=== PATIENT | female | born 1985 | race Caucasian/White ===

== ENCOUNTER 2023-02-26 03:08 | Emergency (ER) | payer OTHER ==
[~2023-02-26] VITALS: Ht 167 cm; Wt 95.0 kg
[2023-02-26] MEDS ORDERED: LACTATED RINGERS 1,000 ML IV STA (03:26)
[2023-02-26] MEDS ORDERED: ONDANSETRON 4 MG/2 ML (SDV) Z0FRAN IVP ONE (03:30)
--- NOTE | 2023-02-26 03:32 | ED GI ---
General Chief Complaint: Abdominal/GI Problems Stated Complaint: NAUSEA,VOMITING,DIARRHEA Source of Information: Patient History of Present Illness Date Seen by Provider: February 26, 2023 Time Seen by Provider: 03:15 Initial Comments PT ARRIVES VIA POV STATES SHE BEGAN FEELING SICK ABOUT 12 HOURS AGO WITH: -NAUSEA/VOMITING/DIARRHEA. SHE STATES THE VOMITING AND DIARRHEA STARTED ABOUT 9 HOURS AGO--SHE HAS VOMITED "AT LEAST 30 TIMES" AND HAS HAD DIARRHEA THE SAME NUMBER OF TIMES--STATES SHE HAS DIARRHEA EVERY TIME SHE VOMITS. NO HEMATEMESIS OR COFFEE-GROUND EMESIS. NO BLACK/BLOODY/TARRY STOOLS -DIFFUSE ABDOMINAL CRAMPING. -CHILLS--HAS NOT CHECKED TEMPERATURE LAST VOID IS UNKNOWN--SOMETIME BEFORE THE ONSET OF THESE SYMPTOMS. SHE HAS NOT VOIDED SINCE THESE SYMPTOMS BEGAN. NO KNOWN SICK CONTACTS OR SUSPICIOUS FOODS. SHE STATES THAT SHE BEGAN HAVING SYMPTOMS OF A "SINUS INFECTION" ON Tuesday02/21/23 AND WAS PRESCRIBED ZITHROMAX AND PREDNISONE. NO TESTS WERE DONE. SHE HAS JUST FINISHED THOSE MEDICATIONS LMP--4 WEEKS AGO. NORMAL. NO CONTROL. PT HAS HAD 1 COVID VACCINE IN 2020. NO FLU VACCINE. NO CHRONIC MEDICAL PROBLEMS, SHE IS CURRENTLY ON VALCYCLOVIR FOR AN EYE PROBLEM. OTHERWISE DOES NOT TAKE ANY DAILY MEDICATIONS. NO HISTORY OF GI PROBLEMS HER ONLY SURGERY HAS BEEN A IN 2021 SHE DENIES SMOKING, ALCOHOL OR DRUG USE PT IS HERE VISITING FROM [facility] Allergies and Home Medications Allergies Coded Allergies: No Known Drug Allergies (Unverified , 02/26/23) Review of Systems Review of Systems Constitutional: see HPI, chills EENTM: See HPI, Nose Congestion Respiratory: Cough Cardiovascular: No Symptoms Reported Gastrointestinal: See HPI, Abdominal Pain, Diarrhea, Nausea, Poor Fluid Intake, Vomiting Genitourinary: See HPI Musculoskeletal: no symptoms reported Skin: no symptoms reported Psychiatric/Neurological: No Symptoms Reported Endocrine: No Symptoms Reported Hematologic/Lymphatic: No Symptoms Reported Past Feunobj-Gpautp-Obzmbz Hx Patient Social History Tobacco Use?: No Use of E-Cig and/or Vaping dev: No Substance use?: No Alcohol Use?: No Past Medical History Surgeries: Yes ( X 1 IN 2021) Section Respiratory: No Cardiac: No Neurological: No : No Reproductive Disorders: No Genitourinary: No Gastrointestinal: No Musculoskeletal: No Endocrine: No HEENT: Yes (CURRENTLY ON VALCYCLOVIR FOR AN EYE PROBLEM) Cancer: No Psychosocial: No Integumentary: No Blood Disorders: No Physical Exam Vital Signs Vital Signs - First Documented 02/26/23 03:20 Temp 36.7 Pulse 116 Resp 18 B/P (MAP) 106/78 (87) Capillary Refill : Height/Weight/BMI Height: '" Weight: lbs. oz. kg; BMI Method: General Appearance: WD/WN, no apparent distress HEENT: PERRL/EOMI, other (ORAL MUCOSA SLIGHTLY DRY) Neck: normal inspection Respiratory: normal breath sounds, no respiratory distress, no accessory muscle use Cardiovascular: no edema, no murmur, tachycardia Gastrointestinal: abnormal bowel sounds (HYPERACTIVE); No distended, No guarding, No rebound; tenderness (MILD DIFFUSE TENDERNESS. 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, no motor/sensory deficits, alert, normal mood/affect, oriented x 3 Skin: warm/dry, pallor; No rash Progress/Results/Core Measures Results/Orders Lab Results Laboratory Tests Test 02/26/23 03:30 02/26/23 04:05 02/26/23 06:20 Range/Units White Blood Count 13.1 H 4.3-11.0 10^3/uL Red Blood Count 5.56 H 3.80-5.11 10^6/uL Hemoglobin 16.1 H 11.5-16.0 g/dL Hematocrit 47 35-52 % Mean Corpuscular Volume 84 80-99 fL Mean Corpuscular Hemoglobin 29 25-34 pg Mean Corpuscular Hemoglobin Concent 34 32-36 g/dL Red Cell Distribution Width 13.7 10.0-14.5 % Platelet Count 455 H 130-400 10^3/uL Mean Platelet Volume 9.6 9.0-12.2 fL Immature Granulocyte % (Auto) 1 % Neutrophils (%) (Auto) 88 H 42-75 % Lymphocytes (%) (Auto) 5 L 12-44 % Monocytes (%) (Auto) 7 0-12 % Eosinophils (%) (Auto) 0 0-10 % Basophils (%) (Auto) 0 0-10 % Neutrophils # (Auto) 11.5 H 1.8-7.8 10^3/uL Lymphocytes # (Auto) 0.6 L 1.0-4.0 10^3/uL Monocytes # (Auto) 0.9 0.0-1.0 10^3/uL Eosinophils # (Auto) 0.0 0.0-0.3 10^3/uL Basophils # (Auto) 0.1 0.0-0.1 10^3/uL Immature Granulocyte # (Auto) 0.1 0.0-0.1 10^3/uL Neutrophils % (Manual) 87 % Lymphocytes % (Manual) 5 % Monocytes % (Manual) 8 % Blood Morphology Comment NORMAL Sodium Level 141 135-145 MMOL/L Potassium Level 4.0 3.6-5.0 MMOL/L Chloride Level 108 H 98-107 MMOL/L Carbon Dioxide Level 12 L 21-32 MMOL/L Anion Gap 21 H 5-14 MMOL/L Blood Urea Nitrogen 27 H 7-18 MG/DL Creatinine 2.20 H 0.60-1.30 MG/DL Estimat Glomerular Filtration Rate 29 BUN/Creatinine Ratio 12 Glucose Level 168 H 70-105 MG/DL Calcium Level 10.2 H 8.5-10.1 MG/DL Corrected Calcium 8.5-10.1 MG/DL Magnesium Level 2.0 1.6-2.4 MG/DL Total Bilirubin 0.7 0.1-1.0 MG/DL Aspartate Amino Transf (AST/SGOT) 13 5-34 U/L Alanine Aminotransferase (ALT/SGPT) 21 0-55 U/L Alkaline Phosphatase 98 40-136 U/L Total Protein 9.2 H 6.4-8.2 GM/DL Albumin 5.1 H 3.2-4.5 GM/DL Amylase Level 80 25-125 U/L Lipase 21 8-78 U/L Serum Test, Qualitative NEGATIVE NEGATIVE Serum Alcohol < 10 <10 MG/DL Influenza Type A (RT-PCR) Not Detected Not Detecte Influenza Type B (RT-PCR) Not Detected Not Detecte SARS-CoV-2 RNA (RT-PCR) Not Detected Not Detecte My Orders Orders - DARWIN ELIAS DO Ed Iv/Invasive Line Start (02/26/23 03:17) Monitor-Rhythm Ecg Trace Only (02/26/23 03:17) Alcohol (02/26/23 03:17) Amylase (02/26/23 03:17) Cbc With Automated Diff (02/26/23 03:17) Comprehensive Metabolic Panel (02/26/23 03:17) Drug Screen Stat (Urine) (02/26/23 03:17) Hcg,Qualitative Serum (02/26/23 03:17) Lipase (02/26/23 03:17) Magnesium (02/26/23 03:17) Ua Culture If Indicated (02/26/23 03:17) Ondansetron Injection (Zofran Injectio (02/26/23 03:30) Lactated Ringers (Lr 1000 Ml Iv Solution (02/26/23 03:26) Ed Iv/Invasive Line Start (02/26/23 03:26) Manual Differential (02/26/23 03:30) Covid 19 Inhouse Test (02/26/23 04:03) Influenza A And B By Pcr (02/26/23 04:03) Isolation Central Supply Req (02/26/23 04:03) Ed Iv/Invasive Line Start (02/26/23 04:08) Lactated Ringers (Lr 1000 Ml Iv Solution (02/26/23 04:15) Metoclopramide Injection (Reglan Injecti (02/26/23 04:15) Pantoprazole Injection (Protonix Injecti (02/26/23 04:15) Medications Given in ED Current Medications Medications Dose Ordered Sig/[place] Route Start Time Stop Time Status Last Admin Dose Admin Lactated Ringer's 1,000 ml @ 0 mls/hr Q0M ONCE IV 02/26/23 04:15 02/26/23 04:16 DC 02/26/23 05:06 1,000 MLS/HR Metoclopramide HCl 10 mg ONCE ONCE IVP 02/26/23 04:15 02/26/23 04:16 DC 02/26/23 04:22 10 MG Ondansetron HCl 4 mg ONCE ONCE IVP 02/26/23 03:30 02/26/23 03:31 DC 02/26/23 03:49 4 MG Pantoprazole 40 mg ONCE ONCE IV 02/26/23 04:15 02/26/23 04:16 DC 02/26/23 04:22 40 MG Vital Signs/I&O 02/26/23 03:20 Temp 36.7 Pulse 116 Resp 18 B/P (MAP) 106/78 (87) Progress Progress Note : Progress Note GIVEN: -IV FLUIDS -ZOFRAN BASIC LAB INCLUDING CBC, CHEMISTRIES, HCG, UA AND COVID/FLU TESTS ORDERED PT IS MILDLY TACHYCARDIC ON ARRIVAL WITH HR IN 110'S, BP IS NORMAL FEELS MUCH BETTER AFTER THE ABOVE. NO VOMITING OR DIARRHEA DURING ER STAY PT IS ABLE TO VOID AFTER IV FLUIDS HEART RATE DOWN TO 90'S, BP IS STABLE AT > 100 SYSTOLIC Departure Impression Primary Impression: Gastroenteritis Disposition: HOME, SELF-CARE Condition: Improved Departure-Patient Inst. Decision time for Depature: 06:30 Referrals: NO,LOCAL PHYSICIAN (PCP/Family) Primary Care Physician Patient Instructions: [id number] Add. Discharge Instructions: CLEAR LIQUIDS, SIPS AT A TIME--WATER, BROTH, JELLO, GATORADE WHEN YOUR NAUSEA IS BETTER, ADD BRATS DIET TO CLEAR LIQUIDS--BANANAS, RICE, APPLESAUCE, TOAST, SALTINES FOLLOW UP WITH YOUR DR ON TUESDAY IF SYMPTOMS PERSIST, RETURN TO ER IF SYMPTOMS WORSEN. All discharge instructions reviewed with patient and/or family. Voiced understanding. Scripts L. Acidophilus/Pectin, [place] (Acidophilus Capsule) 7.5 Mg (30 Million Cell)-100 Mg Capsule 2 EACH PO QID, #40 CAP Prov: DARWIN ELIAS DO 02/26/23 Ondansetron (Ondansetron Odt) 8 Mg Tab.rapdis 8 MG PO Q6H, #10 TAB Prov: DARWIN ELIAS DO 02/26/23 DARWIN ELIAS DO February 26, 2023 03:32
[2023-02-26 03:44] LABS: BASOPHILS # (AUTO) 0.1 10^3/uL (0.0-0.1); BASOPHILS % (AUTO) 0 % (0-10); EOSINOPHILS % (AUTO) 0 % (0-10); HEMATOCRIT 47 % (35-52); HEMOGLOBIN 16.1 g/dL (11.5-16.0); LYMPHOCYTES # (AUTO) 0.6 10^3/uL (1.0-4.0); LYMPHOCYTES % (AUTO) 5 % (12-44); MEAN CORPUSCULAR HEMOGLOBIN 29 pg (25-34); MEAN CORPUSCULAR HGB CONC 34 g/dL (32-36); MEAN CORPUSCULAR VOLUME 84 fL (80-99); MEAN PLATELET VOLUME 9.6 fL (9.0-12.2); MONOCYTES # (AUTO) 0.9 10^3/uL (0.0-1.0); MONOCYTES % (AUTO) 7 % (0-12); NEUTROPHILS # (AUTO) 11.5 10^3/uL (1.8-7.8); NEUTROPHILS % (AUTO) 88 % (42-75); PLATELET COUNT 455 10^3/uL (130-400); WHITE BLOOD COUNT 13.1 10^3/uL (4.3-11.0)
[2023-02-26 03:51] LABS: ALBUMIN 5.1 GM/DL (3.2-4.5); CHLORIDE 108 MMOL/L (98-107); SODIUM 141 MMOL/L (135-145)
[2023-02-26 03:52] LABS: AMYLASE 80 U/L (25-125); CALCIUM 10.2 MG/DL (8.5-10.1)
[2023-02-26 03:54] LABS: GLUCOSE 168 MG/DL (70-105); TOTAL PROTEIN 9.2 GM/DL (6.4-8.2)
[2023-02-26 03:55] LABS: BILIRUBIN,TOTAL 0.7 MG/DL (0.1-1.0); CARBON DIOXIDE 12 MMOL/L (21-32)
[2023-02-26 03:57] LABS: ALKALINE PHOSPHATASE 98 U/L (40-136); GFR ESTIMATED 29
[2023-02-26 03:58] LABS: BUN/CREATININE RATIO 12
[2023-02-26 04:00] LABS: ALANINE AMINOTRANSFERASE 21 U/L (0-55)
[2023-02-26 04:01] LABS: LIPASE 21 U/L (8-78)
[2023-02-26 04:05] LABS: LYMPHOCYTES % (MANUAL) 5 %; MONOCYTES % (MANUAL) 8 %; NEUTROPHILS % (MANUAL) 87 %; RBC MORPH NORMAL
[2023-02-26] MEDS ORDERED: METOCLOPRAMIDE INJ 10 MG/2 ML (REGLAN) IVP ONE (04:15)
[2023-02-26] MEDS ORDERED: LACTATED RINGERS 1,000 ML IV ONE (04:15)
[2023-02-26] MEDS ORDERED: PANTOPRAZOLE 40 MG (PROTONIX) VIAL IV ONE (04:15)
[2023-02-26 06:29] LABS: CLARITY,URINE CLOUDY; COLOR,URINE ORANGE; GLUCOSE, URINE (UA) NEGATIVE (NEGATIVE); KETONES,URINE NEGATIVE (NEGATIVE); LEUKOCYTE ESTERASE ,URINE NEGATIVE (NEGATIVE); NITRITE,URINE NEGATIVE (NEGATIVE); PH,URINE 5.5 (5-9); PROTEIN,URINE 2+ (NEGATIVE)
[2023-02-26] MEDS ORDERED: ONDA8TAB13 PO (06:36)
[2023-02-26] MEDS ORDERED: L. A1CAP11 PO (06:36)
[2023-02-26 06:55] LABS: AMPHETAMINE SCREEN, URINE NEGATIVE (NEGATIVE); BARBITURATE SCREEN URINE NEGATIVE (NEGATIVE); BENZODIAZEPINES SCREEN URINE NEGATIVE (NEGATIVE); CANNABINOID SCREEN, URINE NEGATIVE (NEGATIVE); COCAINE SCREEN URINE NEGATIVE (NEGATIVE); METHADONE STAT NEGATIVE (NEGATIVE); OPIATE SCREEN URINE NEGATIVE (NEGATIVE); OXYCODONE STAT NEGATIVE (NEGATIVE); PROPOXYPHENE STAT NEGATIVE (NEGATIVE); TRICYCLIC ANTIDEPRESSANTS SCRE NEGATIVE (NEGATIVE)
[2023-02-26 07:02] VITALS: BP 104/62
[2023-02-26 07:05] LABS: BACTERIA,URINE FEW /HPF; BILIRUBIN,URINE 2+ (NEGATIVE)
[2023-02-26 07:06] LABS: CALCIUM OXALATE CRYSTALS,UR FEW /LPF
[2023-02-26 07:07] LABS: AMORPHOUS SEDIMENT,UR MOD AMOR URATES /LPF
== END 2023-02-26 07:03 | disposition home or self-care (01) ==
LOC: ER 03:12
DX: K52.9 Noninfective gastroenteritis and colitis, unspecified (principal); R00.0 Tachycardia, unspecified; H57.9 Unspecified disorder of eye and adnexa; Z79.899 Other long term (current) drug therapy; Z28.311 Partially vaccinated for COVID-19; Z20.822 Contact with and (suspected) exposure to COVID-19
CPT/HCPCS: 80053; 80306; 81000; 82150; 83690; 83735; 84703; 85007; 85027; 87636; 93041; 99284; G0480; 36415; 80320